=== PATIENT | male | born 1945 | race Caucasian/White ===

== ENCOUNTER → 2023-12-31 09:52 | Outpatient (REF) | payer MEDICARE, OTHER, SELFPAY ==
[2023-12-31 11:59] LABS: ALT (SGPT) 31 U/L (0-50); AST (SGOT) 29 U/L (17-59); Albumin 4.3 g/dl (3.5-5.0); Alkaline Phosphatase 61 U/L (38-126); Blood Urea Nitrogen 25 mg/dl (9-20); Calcium 9.2 mg/dl (8.4-10.2); Carbon Dioxide 26 mmol/L (22-30); Chloride 103 mmol/L (98-107); Glucose 110 mg/dl (70-99); Potassium 4.3 mmol/L (3.5-5.1); Sodium 136 mmol/L (135-145); Total Bilirubin 0.8 mg/dl (0.2-1.3); Total Protein 7.1 g/dl (6.3-8.2); eGFR > 60.00
[2023-12-31 12:27] LABS: TSH Reflex To Free T4 2.04 uIU/ml (0.47-4.68)
== END ==
LOC: DHCBC HW 09:52
PROVIDERS: ATTENDING PHYSICIAN Internal Medicine Cardiovascular Disease; FAMILY PHYSICIAN Internal Medicine
DX: I48.19 Other persistent atrial fibrillation (principal); I49.9 Cardiac arrhythmia, unspecified; I45.2 Bifascicular block
CPT/HCPCS: 36415; 80053; 84443; 93306

== ENCOUNTER 2024-01-13 12:32 | Inpatient (IN) | payer MEDICARE, OTHER, SELFPAY ==
[2024-01-13 13:00] VITALS: BP 115/68; BMI 28.3
--- NOTE | 2024-01-13 13:40 | W.PN.CD ---
Addendum entered and electronically signed by Lawrence Vora MD 01/13/24 14:13:
I saw and examined the patient.
The ART LIBRARIAN's note was reviewed and I agree with the note.
Comment: Will begin Quinaglute
Original Note:
Today's Communication / Plan
-
Start antiarrhythmic therapy
Impression / Plan
-
This is the summary. See scanned H&P.
BACKGROUND: 78M with persistent atrial fibrillation, RBBB/LAFB presents for Quinaglute and DCCV
Fitter And Turner: Dr. Vora
Persistent atrial fibrillation S/P ablation (2013)
-Symptomatic with fatigue
-He tolerated Quinaglute in the past & sotalol did not control his atrial fibrillation
-Oral Anticoagulation: Apixaban 5mg BID, he denies missed doses and abnormal bleeding
-[id number]: score 2 (age 75 or more)
-EKG now & start Quinaglute 324mg Q8H
-DCCV Saturday if required
RBBB
LAFB
BPH
SUBJECTIVE:
Denies CP, SOB, and dizziness.
Physical Exam
Physical Exam
Constitutional: No acute distress and Comfortable
EENT: Anicteric and Moist mucous membranes
Cardiovascular: S1S2 is normal and Murmur/rub/gallop absent
Respiratory: Respiratory effort normal and Lungs clear to auscul.
GI: Soft, Distention absent and Non tender
Neuro/Psych: AO x 3
Other: Skin (warm and dry)
Data Reviewed
-
Date of Service: January 13, 2024
EKG: Report Reviewed by me
Labs: Labs Reviewed by me
Old Records: Reviewed
--- NOTE | 2024-01-13 14:15 | PTCARENOTE ---
Rec'd pt as a direct admit from home after seeing warranty manager a few weeks ago for his persistent Afib. IV line inserted as ordered. Baseline EKG done, w/QRS of 148. Pharmacy notified of pt's arrival & quinaglute to be sent up for pt as soon as it
arrives. Pt aware of plan of care. Call prieto within reach & no addtl needs at this time.
[2024-01-13 16:22] VITALS: BP 124/108
[2024-01-13 16:23] VITALS: BP 117/84
[2024-01-13] MEDS: [UNRECOGNIZED DRUG - OTHER] 324 MG PO ×2 (16:23→23:52)
[2024-01-13 18:48] VITALS: BP 120/80
[2024-01-13] MEDS: ELIQUIS 5 MG PO (20:30)
--- NOTE | 2024-01-13 21:55 | PTCARENOTE ---
Pt AAOX3 w/no c/o CP or SOB; Pt continues in Afib w/HR 90's-110's at rest, but is tachycardic in the 130's-140's w/activity. Pt's assessment unchanged from this RN's previous assessment this afternoon. No addtl needs at this time. Plan of care
ongoing.
[2024-01-13 22:53] VITALS: BP 102/64
--- NOTE | 2024-01-13 23:00 | PTCARENOTE ---
Assumed care at 2330. Patient comfortable, VSS, offered no complaints. A-FIB BBB on telemetry. Plan of care reviewed, call prieto in reach
[2024-01-14] VITALS (7 sets, daily range): BP systolic 90–124; BP diastolic 65–89
[2024-01-14] MEDS: [UNRECOGNIZED DRUG - OTHER] 324 MG PO ×2 (07:55→16:07)
[2024-01-14] MEDS: ELIQUIS 5 MG PO ×2 (07:55→20:02)
--- NOTE | 2024-01-14 08:29 | PTCARENOTE ---
Assumed care of patient at 0700. Pt is awake, alert, and oriented. No complaints of pain. Pt remains in Afib, HR 90's to 130's with ambulation. BP 124/80 MAP 92. 3rd dose of Quinaglute administered this morning, will assess EKG 2hrs post
administered per order.
--- NOTE | 2024-01-14 11:38 | W.PN.CD ---
Today's Communication / Plan
-
NPO after MD
DINESH/ DCCV tomorrow, missed one dose Eliquis
Add low dose metoprolol
Do not resume dilt (interacts with Kayla to increase Kayla)
Impression / Plan
-
-
BACKGROUND: 78M with persistent atrial fibrillation, RBBB/LAFB presents for Quinaglute and DCCV
Woodworking Belt Sander: Dr. Vora
Persistent atrial fibrillation. Sinus since ablation (2013) until recently
-Symptomatic with fatigue
-He tolerated Quinaglute in the past. Sotalol did not control his atrial fibrillation
-Oral Anticoagulation: Apixaban 5mg BID, he says he missed 01/13/2024 AM dose. No abnormal bleeding
-[id number]: score 2 (age 75 or more)
-EKG now & start Quinaglute 324mg Q8H
-DCCV Saturday if required
- NPO after MD
- DINESH/ DCCV tomorrow, missed one dose Eliquis
- Add low dose metoprolol
- Do not resume dilt (interacts with Kayla to increase Kayla)
- Low threshold to refer for repeat ablation if Kayla not tolerated or ineffective or leads to unacceptable QTc prolongation
RBBB
LAFB
BPH
SUBJECTIVE:
Denies CP, SOB, and dizziness.
Physical Exam
Vital Signs/Labs
Vital Signs
Temp Pulse Resp BP Pulse Ox
98.3 F 115 18 124/80 96
01/14/24 11:09 01/14/24 11:09 01/14/24 11:09 01/14/24 07:34 01/14/24 11:09
01/13/24 01/14/24 01/15/24
06:59 06:59 06:59
Actual Weight 102.8 kg
Physical Exam
Constitutional: No acute distress
Cardiovascular: Pedal edema is absent and Rhythm/rate is irregular
Respiratory: Respiratory effort normal and Lungs clear to auscul.
GI: Soft and Distention absent
Neuro/Psych: AO x 3 and Motor deficits absent
Data Reviewed
-
Date of Service: January 14, 2024
--- NOTE | 2024-01-14 11:46 | CM ---
Chart reviewed. Patient is independent of ADLS, lives with his in a [facility], [address], 1st floor set up, 0 DME. Patient currently with no discharge needs. Plan is for the patient to return home. CM to follow
--- NOTE | 2024-01-14 12:01 | PTCARENOTE ---
Assumed care of pt from prev nsg shift. Pt AAOx3 w/no c/o CP or SOB. Pt's VS stable. HR in the 90's-100's at rest & in the 110's-120's w/activity. No addtl needs at this time. Plan of care ongoing.
[2024-01-14] MEDS: LOPRESSOR 25 MG PO ×2 (12:16→20:02)
--- NOTE | 2024-01-14 21:12 | PTCARENOTE ---
Pt's QRS 2hrs post 1600 quinaglute dose was 156. Pt remains Afib on compliance monitor & confirmed w/EKG. VS stable w/HR now improved in the 60's-70's at rest & in the 80's w/activity since starting PO metoprolol as ordered this afternoon. Plan of
care ongoing.
[2024-01-15] VITALS (7 sets, daily range): BP systolic 94–151; BP diastolic 66–132
[2024-01-15] MEDS: [UNRECOGNIZED DRUG - OTHER] 324 MG PO ×3 (00:12→15:31)
[2024-01-15] MEDS: ELIQUIS 5 MG PO (07:12)
--- NOTE | 2024-01-15 07:18 | PTCARENOTE ---
report given to the laboratory development technician. Eliquis and Quinidine given. VSS, patient awake and voided in the bathroom
--- NOTE | 2024-01-15 07:51 | PTCARENOTE ---
Pt for Lathe Tender. Report called by blanking press operator RN. Transported via wheelchair with Lathe Tender RN.
--- NOTE | 2024-01-15 07:51 | W.PN.CD ---
Today's Communication / Plan
-
continue meds including Quniglute as outlined by Dr Vora
Do not use cardizem
Plan for DINESH/CV today. Procedure and risks reviwed and consent signed
Impression / Plan
-
-
BACKGROUND: 78M with persistent atrial fibrillation, RBBB/LAFB presents for Quinaglute and DCCV
Watchmaker Apprentice: Dr. Vora
Persistent atrial fibrillation. Sinus since ablation (2013) until recently
-Symptomatic with fatigue
-He tolerated Quinaglute in the past. Sotalol did not control his atrial fibrillation
-Oral Anticoagulation: Apixaban 5mg BID, he says he missed 01/13/2024 AM dose. No abnormal bleeding
-[id number]: score 2 (age 75 or more)
- Quinaglute 324mg Q8H started this admit
- planf ro DINESH/CV 01/15/24
metoprolol added
- Do not resume dilt (interacts with Kayla to increase Kayla)
- Low threshold to refer for repeat ablation if Kayla not tolerated or ineffective or leads to unacceptable QTc prolongation
RBBB
LAFB
BPH
SUBJECTIVE:
Denies CP, SOB, and dizziness.
Physical Exam
Vital Signs/Labs
Vital Signs
Temp Pulse Resp BP Pulse Ox
97.4 F 78 16 110/77 97
01/15/24 07:16 01/15/24 07:16 01/15/24 07:16 01/15/24 02:46 01/15/24 07:16
01/14/24 01/15/24 01/16/24
06:59 06:59 06:59
Actual Weight 102.8 kg
Physical Exam
Constitutional: No acute distress
Cardiovascular: Rhythm/rate is irregular
Respiratory: Respiratory effort normal
GI: Soft
Neuro/Psych: Alert
Data Reviewed
-
Date of Service: January 15, 2024
Medical Decision Making: Reviewed Test Results
X-Ray/CT/US/MRI/NUC/PET: Report Reviewed by me
Labs: Labs Reviewed by me
--- NOTE | 2024-01-15 09:24 | W.PN.UPDATE ---
Update Note
Progress Note Update
DINESH/CV - successful conversion of afib to sinus rhythm
--- NOTE | 2024-01-15 10:14 | PTCARENOTE ---
Pt received from lab support service tech. Aox3. VSS. NSR on tele monitor. Strip placed in chart. Pt and in good spirits. OOB to chair.
--- NOTE | 2024-01-15 10:19 | W.PN.CD ---
Today's Communication / Plan
-
Home several hours after 6th dose of Kayla
Follow tele/ekg/QTc
Impression / Plan
-
-
BACKGROUND: 78M with persistent atrial fibrillation, RBBB/LAFB presents for Quinaglute and DCCV
Double Cutter: Dr. Vora
Persistent atrial fibrillation. Sinus since ablation (2013) until recently
-Symptomatic with fatigue
-He tolerated Quinaglute in the past. Sotalol did not control his atrial fibrillation
-Oral Anticoagulation: Apixaban 5mg BID, he says he missed 01/13/2024 AM dose. No abnormal bleeding
-[id number]: score 2 (age 75 or more)
- Quinaglute 324mg Q8H started this admit
- DINESH/CV 01/15/24 today went well
metoprolol added
- Do not resume dilt (interacts with Kayla to increase Kayla)
- Low threshold to refer for repeat ablation if Kayla not tolerated or ineffective or leads to unacceptable QTc prolongation
RBBB
LAFB
BPH
SUBJECTIVE:
Denies CP, SOB, and dizziness.
Physical Exam
Vital Signs/Labs
Vital Signs
Temp Pulse Resp BP Pulse Ox
97.7 F 66 16 105/81 97
01/15/24 10:08 01/15/24 10:09 01/15/24 10:08 01/15/24 10:09 01/15/24 10:08
01/14/24 01/15/24 01/16/24
06:59 06:59 06:59
Actual Weight 102.8 kg
Physical Exam
Constitutional: No acute distress
EENT: Anicteric
Cardiovascular: Rhythm & rate is regular and Pedal edema is absent
Respiratory: Respiratory effort normal and Lungs clear to auscul.
GI: Soft and Distention absent
Neuro/Psych: AO x 3
Data Reviewed
-
Date of Service: January 15, 2024
--- NOTE | 2024-01-15 10:41 | PTCARENOTE ---
New R Hand IV site placed by Adjunct Professor Of Voice. Added to IV Site flowsheet.
[2024-01-15] MEDS: LOPRESSOR PO (10:42)
[2024-01-15] MEDS: LOPRESSOR 25 MG PO (10:50)
--- NOTE | 2024-01-15 12:40 | CM ---
Chart reviewed. Patient is independent of ADLS, lives with his , [address], 1st floor set up, 0 DME. Plan is for the patient to return home. CM to follow
--- NOTE | 2024-01-15 14:45 | W.DS.TRANS ---
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
-
Discharge Instructions:
Discharge Diagnosis/Procedures Persistent atrial fibrillation
Quinaglute initiation
DINESH guided cardioversion 01/15/2024
Diet No restrictions
Activity As tolerated
Driving Restrictions No driving for 24 hours
Bathing Restrictions None
Instructions:
Stand-Alone Forms:
Changes to Home Medications: Yes
Discharge Medications:
DC Medications w/original date entered in [facility]
apixaban 5 mg tablet (Eliquis) 5 mg PO BID #60 tabs 11/13/13
metoprolol succinate 25 mg tablet,extended release 24 hr 25 mg PO HS #90 tabs 01/15/24
quinidine gluconate 324 mg tablet,extended release 324 mg PO Q8 #90 tabs 01/15/24
Home Medication Changes
Metoprolol and quinidine are new
Pending Results: No
--- NOTE | 2024-01-15 15:20 | PTCARENOTE ---
Emergency supply of Quinadine received from pharmacy and givent to Pt until [facility] can fill home RX.
--- NOTE | 2024-01-15 16:00 | PTCARENOTE ---
IV and tele pack removed. Belongings collected from room. Ambulated off unit with .
== END 2024-01-15 16:13 | disposition home or self-care (01) | DRG 310 ==
LOC: IVU 12:32
PROVIDERS: Internal Medicine Cardiovascular Disease; ADMITTING PHYSICIAN Internal Medicine Cardiovascular Disease
PROC: B24BZZ4 Ultrasonography of Heart with Aorta, Transesophageal (ICD-10-PCS; 2024-01-15)
PROC: 5A2204Z Restoration of Cardiac Rhythm, Single (ICD-10-PCS; 2024-01-15)
DX: I48.19 Other persistent atrial fibrillation (principal); I45.2 Bifascicular block; N40.0 Benign prostatic hyperplasia without lower urinary tract symptoms; Z79.01 Long term (current) use of anticoagulants
CPT/HCPCS: 92960; 93005; 93312; 93320; 93325

== ENCOUNTER → 2024-11-23 09:26 | Outpatient (REF) | payer MEDICARE, OTHER, SELFPAY ==
[2024-11-23 12:24] LABS: Urine Albumin 1+ (Neg - Trace); Urine Bilirubin Negative (Negative); Urine Character Clear (Clear); Urine Color Yellow; Urine Glucose Negative (Negative); Urine Ketone Negative (Negative); Urine Leukocyte Negative (Negative); Urine Nitrite Negative (Negative); Urine Occult Blood 2+ (Negative); Urine Specific Gravity 1.025 (<1.030); Urine Urobilinogen Negative (Neg - 1+)
[2024-11-23 12:27] LABS: % Basophils 0.5 % (0-2); % Eosinophils 2.5 % (0-6); % Immature Granulocytes 0.3 % (0-0.5); % Monocytes 8.9 % (1.7-9.3); % Neutrophils 73.8 % (42.2-75.2); Absolute Eosinophils 0.2 10^3/uL (0-0.7); Absolute Lymphocytes 1.1 10^3/uL (1.2-3.4); Absolute Monocytes 0.7 10^3/uL (0.1-0.6); Absolute Neutrophils 5.6 10^3/uL (1.4-6.5); Hematocrit 51.2 % (39.0-52.0); Hemoglobin 16.4 g/dL (13.0-18.0); Mean Corpuscular Hgb 28.3 pg (27.0-31.0); Mean Corpuscular Volume 88.3 fL (80.0-94.0); Mean Platelet Volume 10.8 fL (7.4-10.4); Nucleated Red Blood Cells % 0 % (-); Platelet Count 217 10^3/uL (130-400); White Blood Cell Count 7.6 10^3/uL (4.8-10.8)
[2024-11-23 12:42] LABS: Urine Mucus Few; Urine Squamous Cell 0-2 /LPF (Few)
[2024-11-23 12:43] LABS: Urine Bacteria Few (Negative); Urine Red Blood Cell 0-2 /HPF (0-2); Urine White Cell 0-2 /HPF (0-5)
[2024-11-23 12:58] LABS: ALT (SGPT) 25 U/L (0-50); AST (SGOT) 28 U/L (17-59); Albumin 4.5 g/dl (3.5-5.0); Alkaline Phosphatase 67 U/L (38-126); Blood Urea Nitrogen 25 mg/dl (9-20); Calcium 9.4 mg/dl (8.4-10.2); Carbon Dioxide 29 mmol/L (22-30); Chloride 100 mmol/L (98-107); Glucose 104 mg/dl (70-99); Potassium 4.2 mmol/L (3.5-5.1); Sodium 138 mmol/L (135-145); Total Bilirubin 1.1 mg/dl (0.2-1.3); Total Protein 7.2 g/dl (6.3-8.2); eGFR 55.19
[2024-11-23 13:28] LABS: PSA, Total - Diagnostic 5.87 ng/ml (0.0-4.0)
== END ==
LOC: HWLAB 09:26
PROVIDERS: FAMILY PHYSICIAN Internal Medicine
DX: Z87.438 Personal history of other diseases of male genital organs (principal); Z13.1 Encounter for screening for diabetes mellitus; R97.20 Elevated prostate specific antigen [PSA]
CPT/HCPCS: 36415; 80053; 81003; 81015; 84153; 85025